=== PATIENT | male | born 1960 | race African-American/Black ===

== ENCOUNTER 2024-03-13 07:37 | Emergency (ER) | payer MEDICARE ==
[2024-03-13] MEDS: Ketorolac 30 MG/ML SDV IM ONE (10:27)
== END 2024-03-13 10:30 | disposition home or self-care (01) ==
LOC: DL.ED 07:37
DX: S09.90XA Unspecified injury of head, initial encounter (principal); M25.461 Effusion, right knee; Z72.89 Other problems related to lifestyle; W10.9XXA Fall (on) (from) unspecified stairs and steps, initial encounter
CPT/HCPCS: 70450; 72125; 73562-RT; 73610-RT; 73630-RT; 96372; 99283; 99284; J1885